=== PATIENT | male | born 1960 | race African-American/Black ===

== ENCOUNTER 2020-08-23 13:43 | Emergency (ER) | payer OTHER ==
[~2020-08-23] VITALS: Ht 170.2 cm; Wt 66.0 kg
[~2020-08-23 13:43] MED LIST: ALBU6.7H9 INH; ALBU90AE INH; ATOR20TA PO; CEPH-569 MT; DILT60TA35 PO; LOSA50TA3 MT
[2020-08-23] MEDS ORDERED: ACETAMINOPHEN 325MG TABLET PO ONE (15:15)
[2020-08-23] MEDS ORDERED: IBUPROFEN 600MG TABLET PO ONE (15:15)
[2020-08-23 16:13] LABS: HEMATOCRIT. 36.5 % (42.0-52.0); HEMOGLOBIN. 12.5 g/dL (14.0-18.0); MEAN CORPUSCULAR HEMOGLOBIN 30.3 pg (28.0-32.0); MEAN CORPUSCULAR VOLUME 88.8 fL (80.0-94.0); MEAN PLATELET VOLUME 9.4 fl (7.4-10.4); PLATELET 204 x1000/uL (130-400); RED BLOOD CELL COUNT 4.11 mill/uL (4.7-6.1); RED CELL DISTRIBUTION WIDTH 13.1 % (11.6-14.6)
[2020-08-23 16:21] LABS: PROTHROMBIN TIME 10.3 sec (9.6-11.0)
[2020-08-23 16:25] LABS: PLATELET ESTIMATE NORMAL
[2020-08-23 16:27] LABS: CHLORIDE 104 mEq/L (98-107)
[2020-08-23] MEDS ORDERED: MORPHINE SULFATE 4 MG/ML CPJ (NOT FOR IM USE) IV ONE (17:00)
[2020-08-23] MEDS ORDERED: ONDANSETRON HCL 4MG/2ML INJ IV ONE (17:00)
[2020-08-23] MEDS ORDERED: CEFTRIAXONE 1 G PREMIX 50 ML IV ONE (17:15)
[2020-08-23 21:07] VITALS: BP 145/95
== END 2020-08-23 21:13 | disposition home or self-care (01) ==
LOC: ER 14:04
DX: R60.0 Localized edema (principal); H53.8 Other visual disturbances; I10 Essential (primary) hypertension; Z87.01 Personal history of pneumonia (recurrent); Z79.899 Other long term (current) drug therapy
CPT/HCPCS: 36415; 73701; 80053; 85025; 85610; 93971; 96365; 96375; 99285; J0696; J2270; J2405

== ENCOUNTER 2021-04-08 14:51 | Emergency (ER) | payer OTHER ==
[~2021-04-08] VITALS: Ht 172.7 cm; Wt 70.0 kg
[2021-04-08 15:56] VITALS: BP 156/98
[2021-04-08] MEDS ORDERED: IBUPROFEN 600MG TABLET PO STA (15:56)
[2021-04-08] MEDS ORDERED: LIDOCAINE HCL/PF 1% 10 MG/ML 5ML VIAL INFIL ONE (16:45)
[2021-04-08] MEDS ORDERED: IBUP-2029 PO (17:33)
== END 2021-04-08 17:57 | disposition home or self-care (01) ==
LOC: ER 14:51
DX: S63.287A Dislocation of proximal interphalangeal joint of left little finger, initial encounter (principal); M54.9 Dorsalgia, unspecified; W01.0XXA Fall on same level from slipping, tripping and stumbling without subsequent striking against object, initial encounter; Y93.89 Activity, other specified; Y92.89 Other specified places as the place of occurrence of the external cause; Y99.8 Other external cause status; Z79.899 Other long term (current) drug therapy
CPT/HCPCS: 29130; 73130; 73140; 99284; J3490; Z7610